=== PATIENT | female | born 1965 | race African-American/Black ===

== ENCOUNTER 2018-03-12 10:46 | Day surgery (SDC) | payer OTHER ==
[2018-03-04 15:09] VITALS: BMI 24.6
[2018-03-12 12:56] VITALS: TEMP 97.9
[2018-03-12 13:11] VITALS: BP 108/73; PULSE 67
--- NOTE | 2018-03-13 16:46 | PATH ---
Surgical Pathology Report Patient Name: VIKASH ORTIZ [facility]. Rec. #: [id number] /Age/Gender: 1965 (Age: 52) / F Account: [id number] Location: [facility]-ENDOSCOPY Taken: 03/12/2018 Received: 03/12/2018 Reported: 03/13/2018 Physicians: Minnie Dunbar M.D. Specimen(s) Received RIGHT COLON ANASTAMOSIS Clinical History History of polyp Postoperative diagnosis: Post surgical anatomy, thickened anastomosis, hemorrhoid Final Diagnosis CECUM-RIGHT COLON ANASTOMOSIS, BIOPSY: SMALL INTESTINAL/COLONIC JUNCTIONAL MUCOSA SHOWING INCREASED CHRONIC INFLAMMATORY INFILTRATE AND REACTIVE LYMPHOID FOLLICLES IN THE LAMINA PROPRIA. NEGATIVE FOR CARCINOMA. Electronically Signed Rico Crane M.D. Gross Description Received in formalin, labeled "cecum-right colon anastomosis" are 5 kang, irregular portions of soft tissue ranging from 0.2-0.3 cm. in greatest dimension. The specimens are submitted in toto in one cassette. 03/12/2018 [facility]/12/2018
== END 2018-03-12 13:20 | disposition home or self-care (01) ==
LOC: FASU-ENDO 10:46
PROVIDERS: ATTEND Internal Medicine Gastroenterology
PROC: 0DBH8ZX Excision of Cecum, Via Natural or Artificial Opening Endoscopic, Diagnostic (ICD-10-PCS; 2018-03-12)
PROC: 0DBK8ZX Excision of Ascending Colon, Via Natural or Artificial Opening Endoscopic, Diagnostic (ICD-10-PCS; principal; 2018-03-12 12:12)
DX: Z08 Encounter for follow-up examination after completed treatment for malignant neoplasm (principal); Z85.038 Personal history of other malignant neoplasm of large intestine; Z09 Encounter for follow-up examination after completed treatment for conditions other than malignant neoplasm; Z86.010 Personal history of colon polyps; Z98.0 Intestinal bypass and anastomosis status; K64.1 Second degree hemorrhoids
CPT/HCPCS: 88305-TC